=== PATIENT | female | born 1980 | race Caucasian/White ===

== ENCOUNTER → 2017-04-18 | Outpatient (CLI) | payer OTHER ==
[~2017-04-18] MED LIST: CARD120T4 PO; CYCL10TA PO; HYDR-3366 PO; IBUP1TAB7 PO; MULT-65 PO; OXYC1TAB63 PO; PERC10TA27 PO; PERC5TAB12 PO; SACC1CAP3 PO; SERO25TA PO; TRAZ100T10 PO; TRAZ50TA12 PO
== END ==
LOC: CPRE 11:42
PROVIDERS: ATTEND Neurological Surgery
DX: M50.10 Cervical disc disorder with radiculopathy, unspecified cervical region (principal); M48.02 Spinal stenosis, cervical region; M50.30 Other cervical disc degeneration, unspecified cervical region

== ENCOUNTER 2017-04-22 06:02 | Observation (INO) | payer OTHER ==
[~2017-04-22] VITALS: Ht 162.6 cm; Wt 88.6 kg
[~2017-04-22 06:02] MED LIST changes: -CYCL10TA PO; -HYDR-3366 PO; -IBUP1TAB7 PO; -PERC10TA27 PO; -PERC5TAB12 PO; -TRAZ50TA12 PO
[2017-04-22] MEDS ORDERED: TRAZ50TA12 PO (07:01)
[2017-04-22] MEDS ORDERED: THROMBIN (TOPICAL) 5,000 UNIT VIAL ONE (07:12)
[2017-04-22] MEDS ORDERED: BUPIVACAINE/EPINEPHRINE 0.5% PF 30 ML VIAL ONE (07:12)
[2017-04-22] MEDS ORDERED: GELFOAM SIZE 100 ONE (07:12)
[2017-04-22] MEDS ORDERED: VANCOMYCIN HCL 1000 MG VIAL ONE (07:12)
[2017-04-22] MEDS ORDERED: POVIDONE IODINE 5% (ANTISEPSIS KIT) 4 APPLICATIONS EACH NARE PRN (07:15)
[2017-04-22] MEDS ORDERED: SODIUM CHLORID 0.9% 500 ML IV PRN (07:15)
[2017-04-22] MEDS ORDERED: VANCOMYCIN 1,000 MG/NS 250 ML IV SCH ×2 (07:15)
[2017-04-22] MEDS ORDERED: LACTATED RINGER'S 1000 ML IV PRN (07:15)
[2017-04-22] MEDS ORDERED: METOPROLOL TARTRATE 25 MG TAB PO PRN (07:15)
[2017-04-22] MEDS ORDERED: CHLORHEXIDINE GLUCONATE 2 % 1 PACK (2 CLOTHS) TOPICAL PRN (07:15)
[2017-04-22] MEDS ORDERED: ACETAMINOPHEN 1000 MG/100 ML 0 ML IV ONE (08:06)
[2017-04-22] MEDS ORDERED: APREPITANT 40 MG CAP ONE (08:08)
[2017-04-22] MEDS ORDERED: ACETAMINOPHEN 1000 MG/100 ML 100 ML IV ONE (09:07)
[2017-04-22] MEDS ORDERED: DEXAMETHASONE SOD PHOS 4 MG/ML VIAL ONE (09:34)
[2017-04-22] MEDS ORDERED: PROPOFOL 500 MG/50 ML INJ 100 ML ONE (09:39)
[2017-04-22] MEDS ORDERED: DO NOT ADM ANY ANTICOAGULANT DRUGS PRN (11:36)
[2017-04-22] MEDS ORDERED: oxyCODONE/ACETAMINOPHEN 5 MG/325 MG TAB PO PRN (11:45)
[2017-04-22] MEDS ORDERED: RESP: ALBUTEROL 2.5 MG/3 ML NEB (PRN) NEB (11:45)
[2017-04-22] MEDS ORDERED: MENTHOL LOZENGE BUCCAL PRN (11:45)
[2017-04-22] MEDS ORDERED: ALUMINUM/MAGNESIUM/SIMETH 30 ML CUP PO PRN (11:45)
[2017-04-22] MEDS ORDERED: METOCLOPRAMIDE HCL 10 MG/2 ML VIAL IV PUSH PRN (11:45)
[2017-04-22] MEDS ORDERED: CYCLOBENZAPRINE HCL 10 MG TAB PO PRN (11:45)
[2017-04-22] MEDS ORDERED: SODIUM CHLORIDE 0.9% FLUSH 10 ML FLUSH IV FLUSH PRN (11:45)
[2017-04-22] MEDS ORDERED: ZOLPIDEM TARTRATE 5 MG TAB PO PRN (11:45)
[2017-04-22] MEDS ORDERED: MAGNESIUM HYDROXIDE SUSP 30 ML CUP PO PRN (11:45)
[2017-04-22] MEDS ORDERED: cloNIDine HCL 0.1 MG TAB PO PRN (11:45)
[2017-04-22] MEDS ORDERED: ACETAMINOPHEN 325 MG TAB PO PRN (11:45)
--- NOTE | 2017-04-22 11:53 | PD.OP ---
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 endotracheal by Roman lyons Surgeon: Mic Renee M.D. Service Learning Coordinator(s): Isamar Pearson Operation and Findings: Following administration of general endotracheal anesthesia, the patient received a gram of vancomycin and Decadron 10 mg intravenously. Sequential compression devices were placed in supine position on a Uzair table and all pressure points adequately padded. The head secured in a donut and anterior cervical region then shaved and prepped with Chloraprep and sterilely draped with Ioban along with the usual sterile draping. A transverse skin incision on the left side of the neck was then made after infiltrating the skin with 0.5% Marcaine with epinephrine solution extending down through the platysma. At the anterior border of the sternocleidomastoid further dissection was undertaken developing a plane between the carotid sheath laterally and the trachea esophagus medially. The prevertebral fascia was exposed and dissected out. The medial attachments of the longus colli muscles were detached and a self- retaining retractor used for exposure. The C6-7 disc space was localized with a marking the disc space and using lateral fluoroscopy. Tomball distraction screws 14 mm length were placed one in the C6 and one in the C7 body interbody distraction and exposure. The annulus incised with a 15 blade and further dissection undertaken using microtechnique with microscope magnification. Diskectomy was undertaken with pituitaries and the endplates were also decorticated with curettes and drill bit. And more posteriorly there was disk fragment herniated through the posterior longitudinal ligament central and on the left side compressing the thecal sac along with a significant uncovertebral joint hypertrophy with foraminal stenosis which was decompressed along with removal of the posterior longitudinal ligament. The foramen was decompressed bilaterally using a Kerrison's and palpation with a nerve hook, the exiting nerve roots were felt to be free. The area was then copiously irrigated. I then placed a Peek cage packed with local autograft bone at the C6-7 interspace under fluoroscopy guidance. Tomball distraction pins were removed and the holes plugged with Gelfoam for hemostasis. In order to facilitate the fusion and provide stabilization, a Precision spine cervical plate was then placed with two 14 mm variable angle screws in the C6 body and two 14 mm fixed angle screws in the C7 body. The plate screw locking mechanism was then engaged. AP and lateral fluoroscopy confirmed good placement of the construct and the retractor was then removed. Muscular bleeding points were cauterized with bipolar cautery and Gelfoam was then also used for hemostasis which was removed. The platysma was then approximated using 3-0 Vicryl interrupted stitches and 3-0 Vicryl subcuticular stitch also placed in an interrupted fashion, and final skin closure was with Mastisol and Steri-Strips. Sterile dressing was then applied. The patient was then extubated and taken to the recovery room. There are no intraoperative complications and all sponge and needle counts were correct at the end of procedure. Estimated blood loss was about 75 cc. The patient did undergo intraoperative neurologic monitoring which remained stable throughout the surgery. Mic Renee MD Apr 22, 2017 11:53
[2017-04-22] MEDS ORDERED: *morphine SULFATE 8 MG/ML PERIprocedure ONLY ONE ×2 (11:54→12:16)
--- NOTE | 2017-04-22 11:54 | RADRPT ---
EXAM DATE/TIME: 04/22/2017 08:45 [facility] COMPARISON: No previous studies available for comparison. INDICATIONS : C6-C7 ACDF. MEDICAL HISTORY : None. SURGICAL HISTORY : None. ENCOUNTER: Initial ACUITY: 1 day PAIN SCORE: 10/10 LOCATION: C-SPINE FINDINGS: AP and lateral views of the cervical spine demonstrate postsurgical changes following intracervical f usion at C6-7. There is an anterior fusion plate which appears to be well-seated. Vertebral body cage is identified in place. Alignment is stable. CONCLUSION: Satisfactory postoperative appearance following anterior cervical fusion at C6-7. Romero Finch MD on April 22, 2017 at 11:51 Board Certified Radiologist. This report was verified electronically.
[2017-04-22] MEDS ORDERED: MIDAZOLAM HCL 2 MG/2 ML VIAL IV ONE (12:00)
[2017-04-22] MEDS ORDERED: ROCURONIUM INJ 50 MG/5 ML SYRINGE IV PUSH ONE (12:00)
[2017-04-22] MEDS ORDERED: NEOSTIGMINE 5 MG/5 ML SYRINGE IV PUSH ONE (12:00)
[2017-04-22] MEDS ORDERED: GLYCOPYRROLATE 1 MG/5 ML SYRINGE IV PUSH ONE (12:00)
[2017-04-22] MEDS ORDERED: LIDOCAINE HCL 1% PF 5 ML SYRINGE OTHER ONE (12:00)
[2017-04-22] MEDS ORDERED: DEXAMETHASONE SOD PHOS 4 MG/ML VIAL IV ONE (12:00)
[2017-04-22] MEDS ORDERED: PROPOFOL 200 MG/20 ML AMP IV ONE (12:00)
[2017-04-22] MEDS ORDERED: NORMOSOL R INJ 1,000 ML IV ONE (12:00)
[2017-04-22] MEDS ORDERED: *HYDROmorphone PF 1 MG VIAL PERIprocedural Use ONLY ONE (12:35)
[2017-04-22] MEDS ORDERED: PROPOFOL 200 MG/20 ML AMP ONE (13:13)
[2017-04-22 13:30] VITALS: BP 154/84; PULSE 72; RESP 16; TEMP 97; O2SAT 95
[2017-04-22] MEDS ORDERED: NS + KCL 20 MEQ INJ 1,000 ML IV SCH (14:00)
[2017-04-22] MEDS ORDERED: METOCLOPRAMIDE HCL 10 MG/2 ML VIAL IVS SCH (14:00)
[2017-04-22 16:00] VITALS: BP 173/93; PULSE 95; RESP 16; TEMP 98; O2SAT 95
[2017-04-22] MEDS: MORPHINE SULFATE 4 MG/ML INJ IV PUSH PRN ×2 (16:01→20:33)
[2017-04-22] MEDS: DEXAMETHASONE SOD PHOS 4 MG/ML VIAL IV PUSH SCH ×2 (16:01→23:20)
[2017-04-22] MEDS: oxyCODONE/ACETAMINOPHEN 5 MG/325 MG TAB PO PRN ×2 (18:17→23:11)
[2017-04-22 20:21] VITALS: BP 153/90; PULSE 94; RESP 18; TEMP 96.3; O2SAT 98
[2017-04-22] MEDS ORDERED: traZODone HCL 50 MG TAB PO SCH (21:00)
[2017-04-22] MEDS ORDERED: QUEtiapine FUMARATE 25 MG TAB PO SCH (21:00)
[2017-04-22] MEDS: SODIUM CHLOR 0.9% 1000 ML INJ 1,000 ML IV SCH (21:16)
[2017-04-22] MEDS: DOCUSATE SODIUM 100 MG CAP PO SCH (21:44)
[2017-04-22] MEDS: SODIUM CHLORIDE 0.9% FLUSH 10 ML FLUSH IV FLUSH SCH (21:44)
[2017-04-23 00:17] VITALS: BP 140/76; PULSE 88; RESP 18; TEMP 96.7; O2SAT 96
[2017-04-23] MEDS: DEXAMETHASONE SOD PHOS 4 MG/ML VIAL IV PUSH SCH (03:29)
[2017-04-23] MEDS: oxyCODONE/ACETAMINOPHEN 5 MG/325 MG TAB PO PRN ×3 (04:00→12:55)
[2017-04-23 04:35] VITALS: BP 153/84; PULSE 72; RESP 18; TEMP 96.9; O2SAT 96
[2017-04-23] MEDS: SODIUM CHLOR 0.9% 1000 ML INJ 1,000 ML IV SCH (07:30)
[2017-04-23 08:00] VITALS: BP 162/92; PULSE 86; RESP 16; TEMP 97.4; O2SAT 93
[2017-04-23] MEDS: DOCUSATE SODIUM 100 MG CAP PO SCH (08:26)
[2017-04-23] MEDS: SODIUM CHLORIDE 0.9% FLUSH 10 ML FLUSH IV FLUSH SCH (08:26)
[2017-04-23 08:30] VITALS: O2SAT 96
[2017-04-23] MEDS ORDERED: MULTIVITAMIN TAB PO SCH (09:00)
[2017-04-23] MEDS ORDERED: NON-FORMULARY DRUG (Saccharomyces Boulardii (Probiotic) 250 MG) PO SCH (09:00)
[2017-04-23] MEDS ORDERED: DILTIAZEM-CD 120 MG CAP ER PO SCH (09:00)
[2017-04-23] MEDS ORDERED: PANTOPRAZOLE SOD 40 MG DELAYED RELEASE TAB PO SCH (09:00)
--- NOTE | 2017-04-23 10:13 | HHI.NSPN ---
(Jd Gutiérrez) History Chief Complaint: Muscle spasms and headaches s/p C6/C7 ACF. (Jd Gutiérrez) Interval History 04/23/17: Pt s/p anterior cervical C6-7 microdiscectomy with interbody fusion; anterior C6-7 cervical plate placement; C6-7 interbody cage placement on . She complains of cervical/thoracic junction area pain. She complains of headaches. She states the LUE radicular pain has resolved. She states the numbness and hypersensitivity is improved in the left hand. (Jd Gutiérrez) Review of Systems General: Negative for: fever, chills, insomnia Respiratory: Negative for: shortness of breath, cough, sputum Cardiovascular: Negative for: chest pain Gastrointestinal: Positive for: constipation, Negative for: nausea, vomitting, diarrhea (Jd Gutiérrez) Exam Results Vital Signs Date Time Temp Pulse Resp B/P (MAP) Pulse Ox O2 Delivery O2 Flow Rate FiO2 04/23/17 08:00 97.4 86 16 162/92 (115) 93 04/22/17 13:00 Nasal Cannula 2 Intake and Output 04/23/17 04/23/17 04/24/17 08:00 16:00 00:00 Intake Total 480 ml Balance 480 ml (Jd Gutiérrez) Physical Examination Resp: CTA bilaterally Heart: NSR no murmurs Abd: Soft positive bs Skin: Incision clean and dry. New bandage placed. Muscle: Moves all 4 extremities. Much better ROM with LUE secondary to less pain. Neuro: Pt awake and alert. Follows commands well. Speech clear and appropriate. (Jd Gutiérrez) Lab, Micro, Other Results Last Impressions Cervical Spine X-Ray 04/22/17 0000 Signed Impressions: Service Date/Time: Saturday, April 22, 2017 08:45 - CONCLUSION: Satisfactory postoperative appearance following anterior cervical fusion at C6-7. Romero Finch MD (Jd Gutiérrez) Medical Decision Making Impression and Plan A: 37 y/o FM s/p C6/C7 ACF with cervical plate placement. P: Discharge pt home Discussed restrictions (Jd Gutiérrez) Attending Statement The exam, history, and the medical decision-making described in the above note were completed with the assistance of the mid-level provider. I reviewed and agree with the findings presented. I attest that I had a [id number] encounter with the patient on the same day, and personally performed and documented my assessment and findings in the medical record. (Mic Renee MD) Jd Gutiérrez Apr 23, 2017 10:13 Mic Renee MD Apr 23, 2017 12:25
[2017-04-23] MEDS ORDERED: CYCL10TA PO ×2 (10:15→15:09)
[2017-04-23 12:00] VITALS: BP 146/89; PULSE 87; RESP 18; TEMP 98.2; O2SAT 94
[2017-04-23] MEDS ORDERED: PERC10TA27 PO (12:26)
[2017-04-24] MEDS ORDERED: HYDR-3366 PO (17:35)
== END 2017-04-23 13:22 | disposition home or self-care (01) ==
LOC: HSDC 06:02 → N06B 13:17
PROVIDERS: ADMIT Neurological Surgery; ATTEND Neurological Surgery
DX: M50.123 Cervical disc disorder at C6-C7 level with radiculopathy (principal); M48.02 Spinal stenosis, cervical region; M50.30 Other cervical disc degeneration, unspecified cervical region; F31.9 Bipolar disorder, unspecified
CPT/HCPCS: 00600; 22551; 22853; 72040; 76000; 94150; 96361; 96374; 96375; 96376; C1713; G0378; J0131; J0690; J1100; J1170; J2250; J2270; J2710; J2765; J3010; J3370; J3480; J7030; J7050; J7120; J8501